=== PATIENT | male | born 1985 | race Hispanic/Latino ===

== ENCOUNTER 2016-10-06 20:28 | Observation (INO) | payer BC ==
[2016-10-06] MEDS ORDERED: Labetalol 25mg/5ml Syringe ONE (20:41)
[2016-10-06] MEDS ORDERED: Labetalol 25mg/5ml Syringe IVP STA (20:51)
[2016-10-06 20:59] LABS: BASO # 0.1 K/uL (0.0-0.2); EOS # 0.8 K/uL (0.0-0.7); EOS % 7.5 % (0.0-4.0); LYMPH # 3.1 K/uL (1.0-4.3); LYMPH % 29.7 % (20.0-40.0); MEAN CELL VOLUME 88.5 fL (80.0-94.0); MEAN CORPUSCULAR HEMOGLOBIN 30.2 pg (27.0-31.0); MEAN CORPUSCULAR HGB CONC 34.1 g/dL (33.0-37.0); MEAN PLATELET VOLUME 7.9 fL (7.2-11.7); MONO % 9.9 % (0.0-10.0); RED CELL DISTRIBUTION WIDTH 12.1 % (11.5-14.5); WHITE BLOOD COUNT 10.3 K/uL (4.8-10.8)
[2016-10-06 21:10] LABS: CHLORIDE 87 mmol/L (98-107); SODIUM 131 mmol/L (132-148)
[2016-10-06 21:13] LABS: ALB/GLOB RATIO 1.4 (1.0-2.1); ALKALINE PHOSPHATASE 70 U/L (38-126); AST/SGOT 30 U/L (17-59); BILIRUBIN,TOTAL 0.5 mg/dL (0.2-1.3); BLOOD UREA NITROGEN 15 mg/dL (9-20); CARBON DIOXIDE 26 mmol/L (22-30); GFR AFRICAN-AMERICAN > 60; GLUCOSE,RANDOM 293 mg/dL (75-110); TOTAL PROTEIN 7.7 g/dL (6.3-8.3)
[2016-10-06 21:14] LABS: ALT/SGPT 24 U/L (21-72); CALCIUM 9.5 mg/dl (8.6-10.4)
[2016-10-06 21:16] LABS: RBC URINE < 1 /hpf (0-3); URINE BACTERIA RARE (<OCC); URINE BILIRUBIN NEGATIVE (NEGATIVE); URINE BLOOD NEGATIVE (NEGATIVE); URINE COLOR Straw (YELLOW); URINE GLUCOSE (UA) 3+ mg/dL (Normal); URINE KETONE NEGATIVE (NEGATIVE); URINE LEUKOCYTE ESTERASE NEG Leu/uL (Negative); URINE PROTEIN NEGATIVE (NEGATIVE); URINE UROBILINOGEN NORMAL mg/dL (0.2-1.0); WBC URINE 1 /hpf (0-5)
[2016-10-06] MEDS ORDERED: Naloxone 0.4 mg/ml Inj (Adult) ONE (21:42)
[2016-10-06] MEDS ORDERED: Sodium Chloride 0.9% 1,000 ML ONE ×2 (21:43→22:25)
--- NOTE | 2016-10-06 21:45 | C.PDOC ---
History Of Present Illness The patient, a 31 y/o male, is brought to the ED by medics for evaluation of lethargy noted prior to arrival. Patient states he has been driving from [place] for 2 days straight and has not been sleeping for the past 2 days. Patient also reports he has not taken his blood pressure medication. Patient notes he experienced a mild headache earlier today. Patient is combative in the ED and denies headache as well as nausea, vomiting. Chief Complaint (Nursing): Altered Mental Status History Per: Patient History/Exam Limitations: None Onset/Duration Of Symptoms: Days (2) Current Symptoms Are (Timing): Still Present Usual Baseline: Alert Oriented Additional History Per: Patient Associated Symptoms: Headache, Other (+lethargic ). denies: Vomiting Past Medical History Reviewed: Historical Data, Nursing Documentation, Vital Signs Vital Signs: Last Vital Signs Temp Pulse 75 10/07/16 04:57 Resp 12 10/07/16 04:57 BP 102/45 L 10/07/16 04:57 Pulse Ox 97 10/07/16 04:57 - Medical History PMH: HTN, Hypercholesterolemia Surgical History: No Surg Hx Family History: States: Unknown Family Hx - Social History Hx Alcohol Use: No Hx Substance Use: No - Immunization History Hx Tetanus Toxoid Vaccination: No (unknown) Hx Influenza Vaccination: No (unknown) Hx Pneumococcal Vaccination: No (unknown) Review Of Systems Except As Marked, All Systems Reviewed And Found Negative. Constitutional: Positive for: Other (+lethargic ) Gastrointestinal: Positive for: Nausea. Negative for: Vomiting Neurological: Positive for: Headache (mild ) Physical Exam - Physical Exam Appears: Non-toxic, No Acute Distress Skin: Normal Color, Warm, Dry Head: Atraumatic, Normacephalic, No Tenderness Eye(s): bilateral: Normal Inspection, PERRL, EOMI Oral Mucosa: Moist Neck: Normal ROM, Supple Chest: Symmetrical, No Deformity, No Tenderness Cardiovascular: Rhythm Regular, No Murmur Respiratory: Normal Breath Sounds, No Rales, No Rhonchi, No Wheezing Extremity: Normal ROM, Capillary Refill (less than 2 seconds) Neurological/Psych: Oriented x3, Normal Speech, Normal Cognition, Other (no focal deficits ) Gait: Steady ED Course And Treatment - Laboratory Results Result Diagrams: 10/06/16 20:55 10/06/16 20:55 Interpretation Of Abnormal: ABG done showed hypoventilation with hypoxemia, Patient subsequently alert, and with normal respiratory effort. Encouraged to take deep breaths and will repeat ABG. ECG: Interpreted By Me, Viewed By Me ECG Rhythm: Sinus Rhythm, Nonspecific Changes ECG Interpretation: No Acute Changes, Abnormal Interpretation Of ECG: NSR, non-spc St-t changes, abnormal tracings. Rate From EC O2 Sat by Pulse Oximetry: 95 (on RA) Pulse Ox Interpretation: Normal Progress Note: CT Head, EKG ordered and reviewed. Patient received Trandate IV. Disposition Counseled Patient/Family Regarding: Diagnosis - Disposition Disposition: HOME/ ROUTINE Disposition Time: 06:30 Condition: STABLE - POA Present On Arrival: None - Clinical Impression Clinical Impression: Drug abuse - Scribe Statement The provider has reviewed the documentation as recorded by the Scribe (Sindy Hua) Provider Attestation: All medical record entries made by the Scribe were at my direction and personally dictated by me. I have reviewed the chart and agree that the record accurately reflects my personal performance of the history, physical exam, medical decision making, and the department course for this patient. I have also personally directed, reviewed, and agree with the discharge instructions and disposition.
[2016-10-06] MEDS ORDERED: Sodium Chloride 0.9% 1,000 ML IV ONE (21:50)
[2016-10-06] MEDS ORDERED: Flumazenil 0.1 mg/ml Inj (5ml) IV STA (22:01)
[2016-10-06] MEDS ORDERED: Flumazenil 0.1 mg/ml Inj (5ml) IVP ONE ×2 (22:04→22:31)
[2016-10-06 22:24] LABS: ABG ALLEN TEST POS; ARTERIAL BLOOD HGB O2 SAT 89.7 % (95.0-98.0); DRAW SITE RRADIAL; METHEMOGLOBIN 1.3 % (0.0-3.0)
[2016-10-06] MEDS ORDERED: Sodium Chloride 0.9% 1,000 ML IV SCH (22:30)
[2016-10-06 23:46] LABS: ABG ALLEN TEST POS; ARTERIAL BLOOD HGB O2 SAT 96.1 % (95.0-98.0); DRAW SITE RRAD; HHB 0.7 % (0.0-5.0); METHEMOGLOBIN 1.2 % (0.0-3.0)
[2016-10-07 04:58] VITALS: RESP 12
[2016-10-07 06:38] VITALS: BP 126/48; PULSE 85; O2SAT 97
--- NOTE | 2016-10-07 09:40 | CT ---
PROCEDURE: CT HEAD WITHOUT CONTRAST. HISTORY: r/o bleed/ AMS COMPARISON: None available. TECHNIQUE: Axial computed tomography images were obtained through the head/brain without intravenous contrast. Radiation dose: Total exam DLP = 1067.97 mGy-cm. FINDINGS: HEMORRHAGE: No intracranial hemorrhage. BRAIN: No mass effect or edema. No atrophy or chronic microvascular ischemic changes. VENTRICLES: Unremarkable. No hydrocephalus. CALVARIUM: No acute calvarial fracture. Questionable mild left frontoparietal scalp swelling. PARANASAL SINUSES: Minor mucosal thickening seen within the both maxillary sinuses. There is also mild mucosal thickening within the ethmoid air complex. MASTOID AIR CELLS: Unremarkable as visualized. No inflammatory changes. OTHER FINDINGS: Status post left cataract surgery. There is a curvilinear radiopaque density adjacent to and abutting superolateral margin left globe. Clinical correlation with surgical history recommended. IMPRESSION: No acute intracranial hemorrhage. Minor mucosal thickening within the maxillary and ethmoid air complexes. Status post left cataract surgery. There is a small curvilinear density adjacent to the superolateral aspect left globe ; clinical correlation with surgical history.
--- NOTE | 2016-10-07 11:42 | CARD ---
APPROVED REPORT EKG Measurement Heart [id number] CT [id number] <Conclusion> Normal sinus rhythm Nonspecific ST and T wave abnormality Abnormal ECG
== END 2016-10-07 06:30 | disposition home or self-care (01) ==
LOC: C.ER 20:28 → C.9OBSV 10-07 00:22
PROVIDERS: ADMIT Emergency Medicine; ATTEND Emergency Medicine
DX: F19.10 Other psychoactive substance abuse, uncomplicated (principal); I10 Essential (primary) hypertension; E78.00 Pure hypercholesterolemia, unspecified